=== PATIENT | male | born 1980 | race Caucasian/White ===

== ENCOUNTER 2024-02-15 22:27 | Emergency (ER) | payer SELFPAY ==
[~2024-02-15] VITALS: Ht 167.6 cm; Wt 89.8 kg
[2024-02-15 23:05] VITALS: BP 100/52; PULSE 80; RESP 20; TEMP 98; O2SAT 98
[2024-02-15 23:16] VITALS: TEMP 98
[2024-02-16] MEDS ORDERED: LIDOCAINE 2% 1000 MG/50 ML VIAL INJ ONE (00:41)
[2024-02-16] MEDS: LIDOCAINE MPF 1% 10 MG/ML VIAL INJ ONE (00:43)
[2024-02-16] MEDS: ceFAZolin 1,000 MG VIAL IM ONE (01:03)
[2024-02-16] MEDS: BACITRACIN OINT 500 UNITS/GM PKT TP ONE (01:16)
[2024-02-16 01:29] VITALS: BP 115/64; PULSE 73; RESP 18; O2SAT 99
[2024-02-16] MEDS ORDERED: CEPH-588 PO (01:30)
[2024-02-16] MEDS ORDERED: NAPR-337 PO (01:31)
== END 2024-02-16 01:35 | disposition home or self-care (01) ==
LOC: MED 22:27
DX: S61.011A Laceration without foreign body of right thumb without damage to nail, initial encounter (principal); L30.8 Other specified dermatitis; Z77.018 Contact with and (suspected) exposure to other hazardous metals; Z79.899 Other long term (current) drug therapy; W31.89XA Contact with other specified machinery, initial encounter; Y92.89 Other specified places as the place of occurrence of the external cause; Y93.89 Activity, other specified; Y99.8 Other external cause status
CPT/HCPCS: 12002; 96372; 99283; J0690; J2001